=== PATIENT | female | born 1950 | race Caucasian/White ===

== ENCOUNTER 2017-03-13 16:06 | Emergency (ER) | payer MEDICARE, OTHER ==
[2017-03-13] MEDS ORDERED: ALUMINUM & MAGNESIUM HYDROXIDE 30 ML UD PO ONE (16:51)
[2017-03-13] MEDS ORDERED: ONDANSETRON ODT 8 MG TAB SL ONE ×2 (16:51→20:45)
[2017-03-13] MEDS ORDERED: SODIUM CHLORIDE 0.9% 1000ML 1,000 ML IVS ONE ×2 (16:51→20:35)
--- NOTE | 2017-03-13 17:15 | RAD ---
EXAM DESCRIPTION: Abdomen Series CLINICAL HISTORY: 66 years Female ,nvd COMPARISON: None. TECHNIQUE: Frontal view chest x-ray and two views of the abdomen. FINDINGS: The cardiomediastinal silhouette appears unremarkable. No consolidating infiltrates or pleural effusions. No free air is identified beneath the hemidiaphragms. No dilated loops of bowel to suggest obstruction. Degenerative changes in the spine. Clips in the gallbladder fossa. IMPRESSION: No acute plain film abnormality is identified. Electronically signed by: Rosa Johansen 03/13/2017 5:13 PM CDT
[2017-03-13] MEDS ORDERED: ACETAMINOPHEN 325 MG TAB PO ONE (17:48)
[2017-03-13] MEDS ORDERED: CIPROFLOXACIN 500 MG TAB PO ONE (19:50)
[2017-03-13] MEDS ORDERED: PROMETHAZINE HCL 25 MG TAB PO ONE (19:50)
[2017-03-13] MEDS ORDERED: metroNIDAZOLE IV PREMIX 500MG 500 MG in PREMIX BAG 1 BAG IVPB ONE (19:50)
[2017-03-13] MEDS ORDERED: FAMOTIDINE 20 MG TAB PO ONE (19:51)
[2017-03-13] MEDS ORDERED: metroNIDAZOLE IV PREMIX 500MG 100 ML IVPB ONE (19:57)
--- NOTE | 2017-03-13 20:38 | ED.PDOC ---
History of Present Illness - General Chief Complaint: GI Problem Stated Complaint: chills, n/v/d Time Seen by Provider: 03/13/17 16:13 Source: patient Exam Limitations: no limitations - History of Present Illness Initial Comments: he patient is a 66-year-old female presenting to the emergency room secondary tonausea and vomiting and diarrhea. She's had diarrhea for the last day and nausea and vomiting starting this morning. Mild to moderate abdominal cramping. Minimal abdominal pain. She is febrile here currently. No blood in the stool or the vomitus. No history of pancreatitis. No rash. No sore throat. No shortness of breath or cough. No chest pain. Timing/Duration: 24 hours Severity: moderate Improving Factors: nothing Worsening Factors: nothing Associated Symptoms: fever/chills, loss of appetite, malaise, nausea/vomiting, weakness Allergies/Adverse Reactions: Allergies NO KNOWN ALLERGY Allergy (Verified 03/13/17 17:34) Home Medications: Ambulatory Orders Ciprofloxacin [Cipro] 500 mg PO BID #20 tab 03/13/17 Famotidine 20 mg PO DAILY #30 tab 03/13/17 Metronidazole 500 mg PO TID #30 tab 03/13/17 Ondansetron [Zofran Odt] 4 mg PO Q4H PRN #10 tab 03/13/17 Review of Systems - Review of Systems Constitutional: States: fever, malaise EENTM: States: no symptoms reported Respiratory: States: no symptoms reported Cardiology: States: no symptoms reported Gastrointestinal/Abdominal: States: diarrhea, nausea, vomiting Genitourinary: States: no symptoms reported Musculoskeletal: States: no symptoms reported Skin: States: no symptoms reported Neurological: States: no symptoms reported Endocrine: States: no symptoms reported All other Systems: No Change from Baseline Past Medical History (General) - Patient Medical History Hx Diabetes: No Surgical History: appendectomy, cholecystectomy, Hysterectomy Family Medical History - Family History Mother Family History: Unknown Physical Exam - Physical Exam General Appearance: Alert, Comfortable, No apparent distress Eye Exam: bilateral normal Ears, Nose, Throat: hearing grossly normal, normal ENT inspection, normal pharynx Neck: non-tender, full range of motion, supple Respiratory: chest non-tender - with the exception of the dermatology treated sites, lungs clear, normal breath sounds, no respiratory distress, no accessory muscle use Cardiovascular/Chest: normal peripheral pulses, no edema, tachycardia - regular rhythm Peripheral Pulses: radial,right: 2+, radial,left: 2+, dorsalis pedis,right: 2+, dorsalis pedis,left: 2+ Gastrointestinal/Abdominal: soft, other - no rebound or peritoneal signs. She does have someincreased discomfort palpation over the left lateral abdomen. Rectal Exam: deferred Back Exam: normal inspection, no CVA tenderness, no vertebral tenderness Extremity: normal range of motion, non-tender, normal inspection, no pedal edema , no calf tenderness, normal capillary refill Neurologic: security assessor II-XII nml as tested, alert, normal mood/affect, oriented x 3 Skin Exam: normal color Comments: Vital Signs - 24 hr 03/13/17 03/13/17 03/13/17 16:15 18:43 19:35 Temperature 101.2 F H 101.4 F H Pulse Rate [ 104 H 102 H 105 H right brachial] Respiratory 20 16 18 Rate Blood Pressure 142/93 165/89 135/71 [right brachial ] O2 Sat by Pulse 104 H 95 94 L Oximetry 03/13/17 20:00 Temperature Pulse Rate [ 95 H right brachial] Respiratory 18 Rate Blood Pressure 126/62 [right brachial ] O2 Sat by Pulse 95 Oximetry Progress - Progress Progress: 03/13/17 20:40 the patient is a 66-year-old female presenting to the emergency room secondary to nausea and vomiting and diarrheaover the course of the day. She has received 2 L of IV fluids for the dehydration. She has received antibiotics. Lab work looks fairly reassuring. Diagnosis at this point is gastroenteritis colitis. Early diverticulitis is a possibility. The patient is going to be covered with ciprofloxacin and metronidazole. She has received her first doses of these at this time. She is also going to be placed on Pepcid twice daily and she will be written for a prescription for Zofran for as needed use to help control nausea and vomiting. Maalox can additionally be used for gastritis symptoms. She needs to keep herself well hydrated and avoid spicy foods or large meals. ER warnings are given for any significant worsening. - Results/Orders Results/Orders: Laboratory Tests 03/13/17 03/13/17 03/13/17 17:00 17:00 18:48 WBC 11.5 H RBC 4.64 Hgb 12.9 Hct 39.1 MCV 84.1 MCH 27.8 MCHC 33.0 RDW 13.2 Plt Count 297 MPV 7.4 Absolute Neuts (auto) 9.40 H Absolute Lymphs (auto) 1.30 Absolute Monos (auto) 0.70 Absolute Eos (auto) 0.00 Absolute Basos (auto) 0.10 Neutrophils % 82.2 H Lymphocytes % 11.2 L Monocytes % 6.0 Eosinophils % 0.1 L Basophils % 0.5 Sodium 139 Potassium 3.3 L Chloride 106 Carbon Dioxide 22 Anion Gap 14.3 BUN 11 Creatinine 0.57 L BUN/Creatinine Ratio 19.3 Random Glucose 125 H Serum Osmolality 278.4 Calcium 9.0 Magnesium 1.9 Total Bilirubin 0.4 AST 13 ALT 14 Alkaline Phosphatase 64 Creatine Kinase 45 CK-MB (CK-2) 0.5 CK-MB (CK-2) % Not Reportable Troponin I < 0.02 Serum Total Protein 7.0 Albumin 3.9 Globulin 3.1 Albumin/Globulin Ratio 1.3 Amylase 54 Lipase 39 Urine Color Yellow Urine Appearance Clear Urine pH 7.0 Ur Specific [place] 1.015 Urine Protein Negative Urine Glucose (UA) Negative Urine Ketones Trace Urine Blood Small H Urine Nitrite Positive H Urine Bilirubin Negative Urine Urobilinogen 0.2 Ur Leukocyte Esterase Small H Urine RBC 1-3 Urine WBC 10-20 H Ur Epithelial Cells 0 Urine Bacteria 3+ H abdominal x-ray shows no acute pathology. Departure - Departure Clinical Impression: Gastroenteritis Disposition: Discharge to Home or Self Care Condition: Fair Departure Forms: ED Discharge - Pt. Copy, Patient Portal Self Enrollment Instructions: DI for Bacterial Gastroenteritis -- Adult Diet: bland diet Activity: increase activity as tolerated Prescriptions: Ciprofloxacin [Cipro] 500 mg PO BID #20 tab Famotidine 20 mg PO DAILY #30 tab Metronidazole 500 mg PO TID #30 tab Ondansetron [Zofran Odt] 4 mg PO Q4H PRN #10 tab PRN Reason: Vomiting Home Medications: Ambulatory Orders Ciprofloxacin [Cipro] 500 mg PO BID #20 tab 03/13/17 Famotidine 20 mg PO DAILY #30 tab 03/13/17 Metronidazole 500 mg PO TID #30 tab 03/13/17 Ondansetron [Zofran Odt] 4 mg PO Q4H PRN #10 tab 03/13/17 Additional Instructions: the patient is a 66-year-old female presenting to the emergency room secondary to nausea and vomiting and diarrheaover the course of the day. She has received 2 L of IV fluids for the dehydration. She has received antibiotics. Lab work looks fairly reassuring. Diagnosis at this point is gastroenteritis colitis. Early diverticulitis is a possibility. The patient is going to be covered with ciprofloxacin and metronidazole. She has received her first doses of these at this time. She is also going to be placed on Pepcid twice daily and she will be written for a prescription for Zofran for as needed use to help control nausea and vomiting. Maalox can additionally be used for gastritis symptoms. She needs to keep herself well hydrated and avoid spicy foods or large meals. ER warnings are given for any significant worsening.
[2017-03-13 22:03] VITALS: O2SAT 96
[2017-03-13 22:13] VITALS: BP 143/87; TEMP 98.7
== END 2017-03-13 22:12 | disposition home or self-care (01) ==
LOC: ER 16:06
DX: K52.9 Noninfective gastroenteritis and colitis, unspecified (principal)
CPT/HCPCS: 36415; 74020; 80053; 81001; 82150; 82550; 82553; 83690; 83735; 84484; 85025; 87086; 87088; 87186; J3490; J7030; Q0169

== ENCOUNTER → 2017-04-06 | Outpatient (CLI) | payer MEDICARE, OTHER ==
--- NOTE | 2017-04-06 14:45 | CT ---
EXAM DESCRIPTION: CT ABDOMEN AND PELVIS WITHOUT AND WITH CONTRAST CLINICAL HISTORY: LEFT LOWER QUADRANT PAIN, ABD PAIN COMPARISON: None Available. TECHNIQUE: CT of the abdomen and pelvis are performed prior to and during IV bolus administration of 100 mL of Isovue 300. Oral contrast media is administered as well. FINDINGS: The lung bases are clear of infiltrate. Liver is normal in size and parenchymal appearance. Spleen pancreas unremarkable. Mild left hydronephrosis and left hydroureter secondary to 3.2 mm stone impacted just above the left UVJ. Right kidney and ureter are unremarkable. There is no lymphadenopathy, inflammation, or free fluid observed. IMPRESSION: Left ureterolithiasis This exam was performed according to our departmental dose-optimization program, which includes automated exposure control, adjustment of the mA and/or kV according to patient size and/or use of iterative reconstruction technique. Electronically signed by: Brian Carlos MD 04/06/2017 2:42 PM CDT Workstation: [id number]
== END | disposition home or self-care (01) ==
LOC: CT 12:44
PROVIDERS: ATTEND Family Medicine
DX: N39.0 Urinary tract infection, site not specified (principal); R10.32 Left lower quadrant pain

== ENCOUNTER → 2018-12-08 | Outpatient (CLI) | payer MEDICARE, OTHER ==
--- NOTE | 2018-12-09 08:14 | US ---
US THYROID CLINICAL STATEMENT: THYROID NODULE. COMPARISON: None TECHNIQUE: Transcutaneous scanning, grayscale and Doppler modes. FINDINGS: Size right thyroid lobe: 4.5 x 1.5 x 1.4 cm Size left thyroid lobe: 5.6 x 1.4 x 1.0 cm Size isthmus: 0.38 cm Estimated total number of nodules greater than or equal to 1 cm: 1 Nodule 1: Size: 3.5 x 3.4 x 1.9 cm Location: Left Lower Composition: solid or almost completely solid: 2 points. Small cystlike areas. Echogenicity: hypoechoic: 2 points Shape: wider than tall: 0 points Margins: smooth: 0 points. Margins are hypoechoic. Echogenic foci: none: 0 points ACR Total Points: 4; ACR TI-RADS risk category: TR4 - moderately suspicious nodule. Nodule 2: Size: 0.9 x 0.8 x 0.8 cm Location: Right Upper Composition: solid or almost completely solid: 2 points Echogenicity: hypoechoic: 2 points Shape: wider than tall: 0 points Margins: smooth: 0 points Echogenic foci: peripheral calcifications: 2 points ACR Total Points: 6; ACR TI-RADS risk category: TR4 - moderately suspicious nodule. Nodule 3: Size: 0.7 x 0.6 x 0.5 cm Location: Right Upper Composition: solid or almost completely solid: 2 points Echogenicity: hypoechoic: 2 points Shape: wider than tall: 0 points Margins: smooth: 0 points Echogenic foci: none: 0 points ACR Total Points: 4; ACR TI-RADS risk category: TR4 - moderately suspicious nodule. Nodule 4: Size: 0.7 x 0.7 x 0.5 cm Location: Right Lower Composition: solid or almost completely solid: 2 points Echogenicity: hypoechoic: 2 points Shape: wider than tall: 0 points Margins: smooth: 0 points Echogenic foci: none: 0 points ACR Total Points: 4; ACR TI-RADS risk category: TR4 - moderately suspicious nodule. The soft tissue around the gland shows no evidence of distinct cyst or dominant solid mass. No parenchymal edema or large calcifications. Overlying skin changes. Normal vascularity. IMPRESSION: 1. Nodule 1: ACR TI-RADS 2017 Category TR4. Recommend: Ultrasound-guided fine needle aspiration. Recommendations based upon [facility] Best Practice recommendations and ACR TI-RADS 2017 guidelines. Please see below*. 2. Nodule 2: ACR TI-RADS 2017 Category TR4. Recommend: Follow-up ultrasound in 1 year. 3. Nodule 3: ACR TI-RADS 2017 Category TR4. Recommend: No further follow-up. 4. Nodule 4: ACR TI-RADS 2017 Category TR4. Recommend: No further follow-up. The soft tissue around the thyroid gland is unremarkable. *ACR TI-RADS 2017 Recommendations: TR1: No FNA or follow up TR2: No FNA or follow up TR3: FNA if >/= 2.5 cm, follow up if 1.5 - 2.4 cm in 1, 3, and 5 years TR4: FNA if >/= 1.5 cm, follow up if 1.0 - 1.4 cm in 1, 2, 3, and 5 years TR5: FNA if >/= 1.0 cm, follow up if 0.5 - 0.9 cm every year for 5 years ACR TI-RADS recommends that no more than two nodules with the highest ACR TI-RADS total point should be biopsied and no more than four nodules should be followed. These recommendations do not apply to patients with increased risk for thyroid cancer or patients with symptomatic thyroid disease. Electronically signed by: Efren Webb MD 12/09/2018 8:11 AM CDT
== END ==
LOC: US 08:18
PROVIDERS: ATTEND Family Medicine
DX: E04.1 Nontoxic single thyroid nodule (principal)

== ENCOUNTER → 2019-06-05 | Outpatient (CLI) | payer MEDICARE, OTHER | LOC: GMAE 17:09 | PROVIDERS: ATTEND Family Medicine | DX: E04.1 Nontoxic single thyroid nodule (principal) ==

== ENCOUNTER 2019-09-16 22:02 | Emergency (ER) | payer MEDICARE, OTHER ==
[2019-09-16 22:22] VITALS: TEMP 99.6
[2019-09-16] MEDS ORDERED: PROMETHAZINE HCL INJ 12.5 MG in SODIUM CHLORIDE 0.9% 50ML 50 ML IVPB ONE (22:26)
[2019-09-16] MEDS ORDERED: MORPHINE SULFATE INJ 10 MG/ML VIAL IV ONE (22:26)
[2019-09-16] MEDS ORDERED: SODIUM CHLORIDE 0.9% 1000ML 1,000 ML IVS ONE (22:26)
--- NOTE | 2019-09-16 22:26 | ED.PDOC ---
History of Present Illness - General Chief Complaint: GI Problem Stated Complaint: N/V today Time Seen by Provider: 09/16/19 22:13 Information Source: patient, RN notes reviewed, Vital Signs reviewed Exam Limitations: no limitations Additional Information: this is a 69-year-old female who presents today with complaints of nausea and vomiting throughout the day today. She states that 2 days ago she received treatment for UTI. She has taken 3 rounds of Zofran today without much improvement. She states that she has not had real episodes of emesis more dry heaving. Shemild epigastriscomfort as well. She states that her last bowel movement was yesterday and within normal limits. She has tried to eat small bites of crackers and eggs today and has been able to hold down fluids. She r emains very uncomfortable Her previous abdominal surgeries have been a hysterectomy, 2 sections, cholecystectomy, and appendectomy. She denies any fever or chills. She states that it is not been uncomfortable with urination today. Review of Systems - Review of Systems Constitutional: States: no symptoms reported. Denies: chills, fever EENTM: States: no symptoms reported Respiratory: States: no symptoms reported Cardiology: States: no symptoms reported Gastrointestinal/Abdominal: States: abdominal pain, nausea, vomiting. Denies: constipation, diarrhea Genitourinary: States: dysuria, frequency Musculoskeletal: States: no symptoms reported, other - right knee replacement August 14 Skin: States: no symptoms reported Neurological: States: no symptoms reported Endocrine: States: no symptoms reported Hematologic/Lymphatic: States: no symptoms reported All other Systems: Reviewed and Negative Past Medical History (General) - Patient Medical History Hx Diabetes: No Family Medical History - Family History Mother Family History: Unknown Physical Exam - Physical Exam General Appearance: Alert, Anxious, Obvious distress, Other - secondary to nausea Eyes, Ears, Nose, Throat Exam: PERRL/EOMI, normal ENT inspection, TMs normal, pharynx normal Neck: non-tender, full range of motion, supple, normal inspection Respiratory: chest non-tender, lungs clear, normal breath sounds, no respiratory distress, no accessory muscle use Cardiovascular/Chest: normal peripheral pulses, regular rate, rhythm, no edema, no gallop, no JVD, no murmur Peripheral Pulses: No deficit Gastrointestinal/Abdominal: normal bowel sounds, no organomegaly, no pulsatile mass, tenderness, other - mild discomfort in the epigastric region Rectal Exam: deferred Back Exam: normal inspection, no CVA tenderness, no vertebral tenderness Extremity: normal range of motion, non-tender, normal inspection, no pedal edema, no calf tenderness Neurologic: color control supervisor II-XII nml as tested, no motor/sensory deficits, alert, normal mood/affect, oriented x 3 Skin Exam: normal color, warm/dry Lymphatic: no adenopathy Progress - Progress Progress: 09/16/19 22:31 MDM: Acute gastritis, PUD, viral syndrome, influenza, dehydration, nausea vomiting, UTI. Patient will be evaluated with laboratory studies. We will go ahead and start an IV and hydrate her. We'll give antiemetics as well as Ppi and pain meds. 09/16/19 23:39 the patient is feeling much better. I explained her results to her and her . All questions were answered. 09/17/19 00:02 Pt is ready for discharge. - Results/Orders Results/Orders: Laboratory Tests 09/16/19 09/16/19 09/16/19 22:35 23:00 23:00 WBC 6.2 RBC 4.00 L Hgb 11.3 L Hct 34.1 L MCV 85.5 MCH 28.4 MCHC 33.2 RDW 13.8 Plt Count 313 MPV 7.3 L Absolute Neuts (auto) 5.10 Absolute Lymphs (auto) 0.60 L Absolute Monos (auto) 0.30 Absolute Eos (auto) 0.10 Absolute Basos (auto) 0.00 Neutrophils % 83.5 H Lymphocytes % 9.0 L Monocytes % 5.6 Eosinophils % 1.4 Basophils % 0.5 Sodium 137 Potassium 3.2 L Chloride 105 Carbon Dioxide 22 Anion Gap 13.2 BUN 10 Creatinine 0.77 BUN/Creatinine Ratio 13.0 Random Glucose 106 H Serum Osmolality 273.3 L Lactic Acid Calcium 8.9 Total Bilirubin 0.6 AST 41 ALT 25 Alkaline Phosphatase 83 Serum Total Protein 7.0 Albumin 3.7 Globulin 3.3 Albumin/Globulin Ratio 1.1 Urine Color Dk yellow H Urine Appearance Clear Urine pH 6.5 Ur Specific [place] 1.015 Urine Protein Negative Urine Glucose (UA) Negative Urine Ketones >=160 Urine Blood Small H Urine Nitrite Positive H Urine Bilirubin Small H Urine Urobilinogen 0.2 Ur Leukocyte Esterase Negative Urine RBC 1-3 Urine WBC 1-3 Ur Epithelial Cells 0-1 Urine Bacteria Rare 09/16/19 23:00 WBC RBC Hgb Hct MCV MCH MCHC RDW Plt Count MPV Absolute Neuts (auto) Absolute Lymphs (auto) Absolute Monos (auto) Absolute Eos (auto) Absolute Basos (auto) Neutrophils % Lymphocytes % Monocytes % Eosinophils % Basophils % Sodium Potassium Chloride Carbon Dioxide Anion Gap BUN Creatinine BUN/Creatinine Ratio Random Glucose Serum Osmolality Lactic Acid 1.0 Calcium Total Bilirubin AST ALT Alkaline Phosphatase Serum Total Protein Albumin Globulin Albumin/Globulin Ratio Urine Color Urine Appearance Urine pH Ur Specific [place] Urine Protein Urine Glucose (UA) Urine Ketones Urine Blood Urine Nitrite Urine Bilirubin Urine Urobilinogen Ur Leukocyte Esterase Urine RBC Urine WBC Ur Epithelial Cells Urine Bacteria COMPARISON: CT of the abdomen and pelvis April 07, 2017. FINDINGS: LUNG BASES: Unremarkable. No mass. No consolidation. ABDOMEN: LIVER: A 1.7 cm cyst within the right hepatic lobe is present. GALLBLADDER AND BILE DUCTS: Surgical clips are present in the right upper quadrant, consistent with previous cholecystectomy. PANCREAS: Unremarkable. No ductal dilation. SPLEEN: Unremarkable. ADRENALS: Unremarkable. No mass. KIDNEYS AND URETERS: Several bilateral parapelvic renal cysts are noted, the largest on the left measures 1.8 cm. There is no obstructing renal or ureteral calculus. There is no hydronephrosis or hydroureter of either kidney. STOMACH AND BOWEL: The stomach is minimally distended with food contents. The small bowel is normal in caliber. Stool is present throughout colon. Scattered colonic diverticula are noted without surrounding inflammation. There is no bowel obstruction. PELVIS: APPENDIX: No findings to suggest acute appendicitis. BLADDER: The bladder is nearly empty. No stones. REPRODUCTIVE: The patient is status post hysterectomy. ABDOMEN and PELVIS: INTRAPERITONEAL SPACE: Unremarkable. No free air. No significant fluid collection. BONES/JOINTS: Postsurgical change of the lumbar spine with spinal rods from L3 through S1. SOFT TISSUES: The soft tissues are normal. VASCULATURE: Several calcified phleboliths are present within the pelvis. No abdominal aortic aneurysm. LYMPH NODES: Unremarkable. No enlarged lymph nodes. IMPRESSION: IMPRESSION: No acute findings on this noncontrasted CT of the abdomen and pelvis to explain the patient's symptoms. Chronic findings as above. Electronically signed by: Johanna Coppola MD 09/16/2019 11:15 PM SLUDGE CONTROL OPERATOR Flu a and b are both negative. - EKG/XRAY/CT EKG: Sinus, no ST T wave changes Comments: Rate of 71, normal axis, no ischemic changes. Departure - Departure Clinical Impression: Acute gastritis without bleeding Qualifiers: Gastritis type: unspecified gastritis Qualified Code(s): K29.00 - Acute gastritis without bleeding Nausea & vomiting Qualifiers: Vomiting type: unspecified Vomiting Intractability: non-intractable Qualified Code(s): R11.2 - Nausea with vomiting, unspecified Time of Disposition: 00:02 Disposition: Discharge to Home or Self Care Condition: Good Departure Forms: ED Discharge - Pt. Copy, Patient Portal Self Enrollment Instructions: Gastritis Referrals: LUIS E ROUSE MD [Primary Care Provider] - 1-2 Weeks Prescriptions: Promethazine HCl [Promethazine Hydrochlorid] 25 mg PO Q6HRS #12 tab Pantoprazole Tablet [Protonix] 40 mg PO ACBK #14 tab Home Medications: Ambulatory Orders Ciprofloxacin [Cipro] 500 mg PO BID #20 tab 03/13/17 Famotidine 20 mg PO DAILY #30 tab 03/13/17 Metronidazole 500 mg PO TID #30 tab 03/13/17 Ondansetron [Zofran Odt] 4 mg PO Q4H PRN #10 tab 03/13/17 Pantoprazole Tablet [Protonix] 40 mg PO ACBK #14 tab 09/16/19 Promethazine HCl [Promethazine Hydrochlorid] 25 mg PO Q6HRS #12 tab 09/16/19 Additional Instructions: take medications as prescribed. [place] diet is recommended. Encourage hydration. If any worsening of symptoms return to the emergency room for reevaluation or follow up with PCP.
[2019-09-16] MEDS ORDERED: PANTOPRAZOLE SODIUM IV 40 MG VIAL IV ONE (22:28)
[2019-09-16] MEDS ORDERED: PROMETHAZINE HCL INJ 25 MG/ML VIAL ONE (22:37)
[2019-09-16] MEDS ORDERED: SODIUM CHLORIDE 0.9% 50ML 50 ML ONE (22:38)
--- NOTE | 2019-09-16 23:16 | CT ---
EXAM: CT Abdomen and Pelvis Without Intravenous Contrast CLINICAL HISTORY: The patient is 69 years old and is Female; abdominal pain TECHNIQUE: Axial computed tomography images of the abdomen and pelvis without intravenous contrast. Sagittal and coronal reformatted images were created and reviewed. This CT exam was performed using one or more of the following dose reduction techniques: automated exposure control, adjustment of the mA and/or kV according to patient size, and/or use of iterative reconstruction technique. COMPARISON: CT of the abdomen and pelvis April 07, 2017. FINDINGS: LUNG BASES: Unremarkable. No mass. No consolidation. ABDOMEN: LIVER: A 1.7 cm cyst within the right hepatic lobe is present. GALLBLADDER AND BILE DUCTS: Surgical clips are present in the right upper quadrant, consistent with previous cholecystectomy. PANCREAS: Unremarkable. No ductal dilation. SPLEEN: Unremarkable. ADRENALS: Unremarkable. No mass. KIDNEYS AND URETERS: Several bilateral parapelvic renal cysts are noted, the largest on the left measures 1.8 cm. There is no obstructing renal or ureteral calculus. There is no hydronephrosis or hydroureter of either kidney. STOMACH AND BOWEL: The stomach is minimally distended with food contents. The small bowel is normal in caliber. Stool is present throughout colon. Scattered colonic diverticula are noted without surrounding inflammation. There is no bowel obstruction. PELVIS: APPENDIX: No findings to suggest acute appendicitis. BLADDER: The bladder is nearly empty. No stones. REPRODUCTIVE: The patient is status post hysterectomy. ABDOMEN and PELVIS: INTRAPERITONEAL SPACE: Unremarkable. No free air. No significant fluid collection. BONES/JOINTS: Postsurgical change of the lumbar spine with spinal rods from L3 through S1. SOFT TISSUES: The soft tissues are normal. VASCULATURE: Several calcified phleboliths are present within the pelvis. No abdominal aortic aneurysm. LYMPH NODES: Unremarkable. No enlarged lymph nodes. IMPRESSION: No acute findings on this noncontrasted CT of the abdomen and pelvis to explain the patient's symptoms. Chronic findings as above. Electronically signed by: Johanna Coppola MD 09/16/2019 11:15 PM LINING CEMENTER
[2019-09-17 00:03] VITALS: BP 168/84; O2SAT 95
== END 2019-09-17 00:09 | disposition home or self-care (01) ==
LOC: ER 22:02
DX: K29.00 Acute gastritis without bleeding (principal); Z90.49 Acquired absence of other specified parts of digestive tract
CPT/HCPCS: 74176; 80053; 81001; 83605; 85025; 87086; 87502; 93005; A4216; J2270; J2550; J7030

== ENCOUNTER → 2019-09-28 | Outpatient (CLI) | payer MEDICARE, OTHER | LOC: GMAE 15:19 | PROVIDERS: ATTEND Family Medicine | DX: E03.9 Hypothyroidism, unspecified (principal); N39.0 Urinary tract infection, site not specified ==

== ENCOUNTER 2019-10-05 05:37 | Day surgery (SDC) | payer MEDICARE, OTHER ==
[2019-10-05] MEDS ORDERED: LACTATED RINGERS 1,000 ML ONE (06:53)
[2019-10-05] MEDS ORDERED: METOPROLOL TARTRATE INJ 5 MG/5 ML VIAL IV ONE (07:00)
[2019-10-05] MEDS ORDERED: LIDOCAINE 1% 10 ML VIAL INJ ONE (07:00)
[2019-10-05] MEDS ORDERED: DEXAMETHASONE INJ 10 MG/ML VIAL ONE (07:00)
[2019-10-05] MEDS ORDERED: PROPOFOL 200 MG/20 ML VIAL IV ONE (07:00)
[2019-10-05] MEDS ORDERED: raNITIdine HCL INJ 25 MG/ML VIAL ONE (07:00)
[2019-10-05] MEDS ORDERED: MIDAZOLAM INJ 2 MG/2 ML VIAL ONE (07:48)
[2019-10-05] MEDS ORDERED: KETOROLAC TROMETHAMINE INJ 30 MG/ML VIAL ONE (08:58)
--- NOTE | 2019-10-05 09:20 | OP ---
DATE OF PROCEDURE: 10/05/19 PREOPERATIVE DIAGNOSIS: 1. Screening colonoscopy. POSTOPERATIVE DIAGNOSIS: 1. Screening colonoscopy. PROCEDURE: 1. Colonoscopy with biopsy times 2. SURGEON: Adithya Daniels MD ANESTHESIA: General. FINDINGS: There was a good prep. Polyps were seen, approximately 2.5 mm polyp in the mid ascending colon and another 2 mm polyp excised in the distal cecum. No other polyps seen. No significant diverticulosis. Internal small hemorrhoids were also seen. COMPLICATIONS: None. ESTIMATED BLOOD LOSS: Minimal. PLAN: Discharge. INDICATION: As stated. PROCEDURE: General anesthesia was induced in the lateral position. Digital rectal exam was normal. The colonoscope was introduced and passed to the cecum. Before we got to the cecum, we excised a 2.5 mm polyp which did appear adenomatous in the mid ascending colon. This was completely excised. There was some oozing from the base. As we came out later, it had clotted and there was no continued bleeding. Once we reached the cecum, upon withdrawal, there was a little rub of the mucosa from the scope and manipulation there, but no bleeding at this point, no evidence of perforation and then the small 2 mm polyp was identified and completely excised with forceps. No bleeding. On further withdrawal, no other polyps were identified. Air was aspirated. The patient tolerated the procedure and was taken to Recovery to be discharged. #[id number] cc: MD ALAN Dillard
[2019-10-12 02:55] VITALS: BP 177/97; TEMP 97.7; O2SAT 96
== END 2019-10-05 10:01 | disposition home or self-care (01) ==
LOC: AMB 05:37
PROVIDERS: ATTEND Surgery
DX: Z12.11 Encounter for screening for malignant neoplasm of colon (principal); D12.2 Benign neoplasm of ascending colon; D12.0 Benign neoplasm of cecum; K64.8 Other hemorrhoids; I10 Essential (primary) hypertension; E89.0 Postprocedural hypothyroidism; Z90.49 Acquired absence of other specified parts of digestive tract; Z90.710 Acquired absence of both cervix and uterus; Z79.899 Other long term (current) drug therapy
CPT/HCPCS: 00812; 45380; 88305; J1100; J1885; J2250; J2780; J3490; J7120

== ENCOUNTER → 2019-12-12 | Outpatient (CLI) | payer MEDICARE, OTHER | LOC: GMAE 11:32 | PROVIDERS: ATTEND Family Medicine | DX: E03.9 Hypothyroidism, unspecified (principal) ==

== ENCOUNTER 2020-09-29 22:10 | Emergency (ER) | payer MEDICARE, OTHER ==
[2020-09-29] MEDS ORDERED: MORPHINE SULFATE INJ 10 MG/ML VIAL IV ONE (22:28)
[2020-09-29] MEDS ORDERED: ALUM & MAG HYDROX-SIMETHICONE 30 ML, LIDOCAINE VISCOUS 2% 15 ML PO ONE ×2 (22:28)
[2020-09-29] MEDS ORDERED: LIDOCAINE HCL 2% (MOUTH-THROAT) 15 ML UD ONE (22:29)
[2020-09-29] MEDS ORDERED: ALUM & MAG HYDROX-SIMETHICONE 30 ML UD ONE (22:29)
[2020-09-29] MEDS ORDERED: ONDANSETRON ODT 8 MG TAB SL ONE (22:38)
[2020-09-29] MEDS ORDERED: PANTOPRAZOLE SODIUM IV 40 MG VIAL IV ONE (23:04)
--- NOTE | 2020-09-29 23:05 | RAD ---
EXAM: Abdominal Radiography COMPARISON: CT abdomen pelvis September 16, 2019 INDICATION: acute chest adn epigastric pain FINDINGS: AP views of the chest and abdomen demonstrate a normal cardiac silhouette with clear lung bases. There is a nonobstructive bowel gas pattern. There is a moderate stool burden. No gross intraperitoneal free air. No abnormal calcifications. Surgical clips project over the right upper quadrant. There are surgical changes of the lumbar spine. IMPRESSION: Nonobstructive bowel gas pattern. Electronically signed by: Vasu Perry MD 09/29/2020 11:04 PM [employer]
--- NOTE | 2020-09-30 00:14 | CT ---
EXAM: CTA Chest, Abdomen, and Pelvis COMPARISON: CT abdomen and pelvis September 16, 2019 INDICATION: MAIN chest pain, ddimer, eval aorta TECHNIQUE: CTA of the chest, abdomen and pelvis was acquired with IV contrast material. Coronal and sagittal reconstructions were obtained. Automated exposure control was utilized on this examination as a dose lowering technique. CTA FINDINGS: Moderate multivessel calcified atherosclerosis. No dissection or aneurysm. No occlusion. 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 Patent superior mesenteric artery, inferior mesenteric artery, and renal arteries. NONVASCULAR CHEST FINDINGS: Heart and mediastinum: Heart size is normal. No lymphadenopathy. Thyroid gland: Out of the [id number]. Lungs: A few faint groundglass opacities are noted in the left lung. Airways: No filling defects. No bronchiectasis. Pleura: No pneumothorax. No significant pleural effusion. Musculoskeletal and soft tissues: Within normal limits for age. CHEST IMPRESSION: 1. No acute vascular abnormalities of the chest. 2. A few faint groundglass opacities in the left lung are favored to represent early pneumonia. Liver: A 2.0 cm hypoenhancing region of the central liver is favored to represent focal fat deposition or a hemangioma. Otherwise normal liver. Gallbladder and biliary: Cholecystectomy. Unremarkable biliary tree. Pancreas: Normal. Spleen: Normal. Kidneys and adrenal glands: Normal adrenal glands. Small right renal cortical cyst and bilateral peripelvic cysts. Stomach and Small Bowel: Normal stomach. 1.6 cm periampullary duodenal diverticulum. The remainder of the small bowel is normal. Urinary bladder: Normal. Uterus and Adnexa: Atrophic or absent uterus. Colon and Appendix: A few colonic diverticula are noted. No evidence of appendicitis. Peritoneal cavity: No ascites or free air. Retroperitoneum and lymph nodes: Normal. Musculoskeletal and soft tissues: Soft tissues are unremarkable. No aggressive bone lesions. Lumbosacral fusion hardware is present with laminectomies. No compression fracture. ABDOMEN AND PELVIS IMPRESSION: 1. No acute intra-abdominal abnormality. 2. 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 Electronically signed by: Vasu Perry MD 09/30/2020 12:12 AM [facility]
--- NOTE | 2020-09-30 02:11 | ED.PDOC ---
History of Present Illness - General Chief Complaint: Chest Pain/AL Stated Complaint: mid chest pain onset 30 mins ago Time Seen by Provider: 09/29/20 22:11 Source: patient Exam Limitations: no limitations - History of Present Illness Initial Comments: The patient is a 70-year-old female presented emergency room secondary to substernal and epigastric pain starting about 30 minutes prior to arrival. It is squeezing and burning in nature. She has had this pain before but this is more severe than normal. Normally she is able to take some Pepto-Bismol and help it go away. She also reports normally drinking water helps it go away. No nausea or vomiting. She does take Prilosec already. No GI bleed. No fever. No history of any cardiac issues or aortic pathology. No history of any pulmonary emboli. No leg swelling. No syncope or near syncope. On exam the patient does have very significant epigastric tenderness to palpation. No palpable mass. Timing/Duration: 1/2 hour Severity: severe Improving Factors: medication Worsening Factors: nothing Associated Symptoms: chest pain, loss of appetite Allergies/Adverse Reactions: Allergies NO KNOWN ALLERGY Allergy (Verified 09/29/20 22:20) Home Medications: Ambulatory Orders Levothyroxine Sodium [Synthroid] 137 mcg PO DAILY 09/28/19 Meloxicam [Mobic] 15 mg PO DAILY 09/28/19 Omeprazole [Prilosec Cap] 20 mg PO ACBK 09/28/19 Tramadol HCl 50 mg PO PRN PRN 09/28/19 Zolpidem Tartrate [Ambien] 5 mg PO BEDTIME 09/28/19 Amoxicillin & Pot Clavulanate [Augmentin Tab] 875 mg PO BID #10 tab 09/30/20 Ondansetron Odt [Zofran ODT] 4 mg PO Q8HR PRN #5 tab 09/30/20 Sucralfate Tab [Carafate Tab] 1 gm PO QID #120 tab 09/30/20 Review of Systems - Review of Systems Constitutional: States: diaphoresis EENTM: States: no symptoms reported Respiratory: States: no symptoms reported Cardiology: States: chest pain Gastrointestinal/Abdominal: States: abdominal pain, nausea Genitourinary: States: no symptoms reported Musculoskeletal: States: no symptoms reported Skin: States: no symptoms reported Neurological: States: no symptoms reported Endocrine: States: no symptoms reported All other Systems: No Change from Baseline Past Medical History (General) - Patient Medical History Hx Seizures: No Hx Stroke: No Hx Dementia: No Hx Asthma: No Hx of COPD: No Hx Cardiac Disorders: No Hx Congestive Heart Failure: No Hx Pacemaker: No Hx Hypertension: Yes Hx Thyroid Disease: Yes Hx Diabetes: No Hx Gastroesophageal Reflux: No Hx Renal Disease: No Hx Cancer: No Hx of HIV: No Hx Hepatitis C: No Hx MRSA: No Surgical History: appendectomy, cholecystectomy, tonsillectomy, Hysterectomy - Vaccination History Hx Tetanus, Diphtheria Vaccination: No Hx Influenza Vaccination: Yes Hx Pneumococcal Vaccination: Yes - Social History Hx Alcohol Use: Yes - social Family Medical History - Family History Mother Family History: Unknown Physical Exam - Physical Exam General Appearance: Alert, No apparent distress, Obvious distress Eye Exam: bilateral normal Ears, Nose, Throat: hearing grossly normal, normal ENT inspection Neck: full range of motion, supple Respiratory: lungs clear, normal breath sounds, no respiratory distress, no accessory muscle use Cardiovascular/Chest: normal peripheral pulses, regular rate, rhythm, no edema Peripheral Pulses: radial,right: 2+, radial,left: 2+ Gastrointestinal/Abdominal: soft, other - Epigastric discomfort to palpation. No palpable mass. No bruising. No evidence of trauma. Rectal Exam: deferred Back Exam: no CVA tenderness, no vertebral tenderness Extremity: non-tender, normal inspection, no pedal edema, normal capillary refill Neurologic: bag sorter II-XII nml as tested, alert, oriented x 3, other - She is anxious Comments: Vital Signs - 8 hr 09/29/20 09/29/20 09/30/20 22:10 23:10 00:10 Temperature 98.7 F Pulse Rate [ 108 H 83 81 monitor] Respiratory 20 16 16 Rate Blood Pressure 187/122 151/88 157/85 [Left Arm] O2 Sat by Pulse 97 92 L 93 L Oximetry 09/30/20 09/30/20 01:10 02:00 Temperature Pulse Rate [ 87 88 monitor] Respiratory 16 16 Rate Blood Pressure 144/97 138/79 [Left Arm] O2 Sat by Pulse 93 L 90 L Oximetry Progress - Progress Progress: 09/30/20 02:14 The patient is a 70-year-old female presented emergency room secondary to substernal epigastric pain. Work-up fails to show any significant cardiac or vascular pathology. This is most likely severe gastritis and esophagitis. The patient is going to increase her Prilosec to twice daily for the next month. She is additionally going to be placed on Carafate for the next 2 months. She does need to keep liquid Maalox or Mylanta with her to help reduce symptoms as needed. She needs to take dietary precautions to avoid upsetting her stomach. She needs to keep her self well-hydrated. Incidentally found is a small urinary tract infection. The dose of Rocephin desmond rodney will be written for Augmentin for 5 days as an outpatient. She will also be written for Zofran for as needed use. ER warnings are given. Follow-up with primary care doctor later next week. phil sasha [phone] - Results/Orders Results/Orders: EKG shows normal sinus rhythm at 92 bpm. Normal axis. Normal R wave progression. No ST segment or T wave changes indicative of acute ischemia. Normal QT interval. Acute abdominal series appears benign. See report for details. Rapid Covid test is negative. CT angiogram of the chest and CT of abdomen pelvis with IV contrast fails to show acute pathology with the exception of possible small infiltrate in the left lower lobe. Laboratory Results - last 24 hr 09/29/20 09/29/20 09/29/20 22:30 22:30 22:30 WBC 5.7 RBC 4.64 Hgb 12.9 Hct 39.0 MCV 84.1 MCH 27.8 MCHC 33.0 RDW 13.7 Plt Count 323 MPV 7.3 L Absolute Neuts (auto) 4.30 Absolute Lymphs (auto) 0.90 L Absolute Monos (auto) 0.40 Absolute Eos (auto) 0.10 Absolute Basos (auto) 0.00 Neutrophils % 74.7 Lymphocytes % 15.5 L Monocytes % 7.5 Eosinophils % 1.6 Basophils % 0.7 PT 9.3 INR < 1.00 PTT (SP) 22.8 D-Dimer, Quantitative 1640.0 H* Sodium 138 Potassium 3.9 Chloride 101 Carbon Dioxide 28 Anion Gap 12.9 BUN 25 H Creatinine 0.81 BUN/Creatinine Ratio 30.9 H Random Glucose 139 H Serum Osmolality 282.3 Calcium 9.1 Magnesium 2.0 Total Bilirubin 0.3 AST 15 ALT 14 Alkaline Phosphatase 71 Creatine Kinase 51 CK-MB (CK-2) 0.8 CK-MB (CK-2) % Not Reportable Troponin I < 0.02 B-Natriuretic Peptide 33.0 Serum Total Protein 7.5 Albumin 3.8 Globulin 3.7 H Albumin/Globulin Ratio 1.0 L Amylase 51 Lipase 47 TSH 0.68 Urine Color Urine Appearance Urine pH Ur Specific Fellows Urine Protein Urine Glucose (UA) Urine Ketones Urine Blood Urine Nitrite Urine Bilirubin Urine Urobilinogen Ur Leukocyte Esterase Urine RBC Urine WBC Ur Epithelial Cells Amorphous Sediment Urine Bacteria 09/29/20 09/30/20 23:45 01:40 WBC RBC Hgb Hct MCV MCH MCHC RDW Plt Count MPV Absolute Neuts (auto) Absolute Lymphs (auto) Absolute Monos (auto) Absolute Eos (auto) Absolute Basos (auto) Neutrophils % Lymphocytes % Monocytes % Eosinophils % Basophils % PT INR PTT (SP) D-Dimer, Quantitative Sodium Potassium Chloride Carbon Dioxide Anion Gap BUN Creatinine BUN/Creatinine Ratio Random Glucose Serum Osmolality Calcium Magnesium Total Bilirubin AST ALT Alkaline Phosphatase Creatine Kinase 46 CK-MB (CK-2) 0.7 CK-MB (CK-2) % Not Reportable Troponin I < 0.02 B-Natriuretic Peptide Serum Total Protein Albumin Globulin Albumin/Globulin Ratio Amylase Lipase TSH Urine Color Yellow Urine Appearance Sl cloudy Urine pH 8.5 H Ur Specific Fellows 1.020 Urine Protein Negative Urine Glucose (UA) Negative Urine Ketones Negative Urine Blood Small H Urine Nitrite Positive H Urine Bilirubin Negative Urine Urobilinogen 0.2 Ur Leukocyte Esterase Trace H Urine RBC 3-5 H Urine WBC 5-10 H Ur Epithelial Cells 1-3 Amorphous Sediment Trace Urine Bacteria 2+ H Departure - Departure Clinical Impression: UTI (urinary tract infection) Qualifiers: Urinary tract infection type: acute cystitis Hematuria presence: without hematuria Qualified Code(s): N30.00 - Acute cystitis without hematuria Acute gastritis Qualifiers: Gastritis type: unspecified gastritis Gastritis bleeding: without bleeding Qualified Code(s): K29.00 - Acute gastritis without bleeding Disposition: Discharge to Home or Self Care Condition: Fair Departure Forms: ED Discharge - Pt. Copy, Patient Portal Self Enrollment Instructions: DI for Chest Pain, Gastritis (DC), Urinary Tract Infection, Adult (DC) Diet: bland diet Activity: increase activity as tolerated Referrals: LUIS E ROUSE MD [Primary Care Provider] - 1-2 Weeks Prescriptions: Ondansetron Odt [Zofran ODT] 4 mg PO Q8HR PRN #5 tab PRN Reason: Nausea--Moderate Amoxicillin & Pot Clavulanate [Augmentin Tab] 875 mg PO BID #10 tab Sucralfate Tab [Carafate Tab] 1 gm PO QID #120 tab Home Medications: Ambulatory Orders Levothyroxine Sodium [Synthroid] 137 mcg PO DAILY 09/28/19 Meloxicam [Mobic] 15 mg PO DAILY 09/28/19 Omeprazole [Prilosec Cap] 20 mg PO ACBK 09/28/19 Tramadol HCl 50 mg PO PRN PRN 09/28/19 Zolpidem Tartrate [Ambien] 5 mg PO BEDTIME 09/28/19 Amoxicillin & Pot Clavulanate [Augmentin Tab] 875 mg PO BID #10 tab 09/30/20 Ondansetron Odt [Zofran ODT] 4 mg PO Q8HR PRN #5 tab 09/30/20 Sucralfate Tab [Carafate Tab] 1 gm PO QID #120 tab 09/30/20 Additional Instructions: The patient is a 70-year-old female presented emergency room secondary to substernal epigastric pain. Work-up fails to show any significant cardiac or vascular pathology. This is most likely severe gastritis and esophagitis. The patient is going to increase her Prilosec to twice daily for the next month. She is additionally going to be placed on Carafate for the next 2 months. She does need to keep liquid Maalox or Mylanta with her to help reduce symptoms as needed. She needs to take dietary precautions to avoid upsetting her stomach. The patient needs to avoid taking her Mobic for the next 2 weeks. She needs to keep her self well-hydrated. Incidentally found is a small urinary tract infection. The dose of Rocephin here ronel will be written for Augmentin for 5 days as an outpatient. She will also be written for Zofran for as needed use. ER warnings are given. Follow-up with primary care doctor later next week.
[2020-09-30] MEDS ORDERED: cefTRIAXone SODIUM 1 GM VIAL IM ONE (02:14)
[2020-09-30] MEDS ORDERED: LIDOCAINE 1% 2 ML VIAL INJ ONE (02:19)
[2020-09-30 02:26] VITALS: BP 136/78; TEMP 98.6; O2SAT 93
== END 2020-09-30 02:26 | disposition home or self-care (01) ==
LOC: ER 22:10
DX: K29.00 Acute gastritis without bleeding (principal); N30.00 Acute cystitis without hematuria; R07.2 Precordial pain; I10 Essential (primary) hypertension; E07.9 Disorder of thyroid, unspecified; Z20.822 Contact with and (suspected) exposure to COVID-19; Z90.49 Acquired absence of other specified parts of digestive tract; Z79.899 Other long term (current) drug therapy
CPT/HCPCS: 71275; 74019; 74177; 80053; 81001; 82150; 82550; 82553; 83690; 83735; 83880; 84443; 84484; 85025; 85379; 85610; 85730; 87086; 87635; 93005; J0696; J2270

== ENCOUNTER → 2020-10-09 | Outpatient (CLI) | payer MEDICARE, OTHER ==
--- NOTE | 2020-10-09 12:40 | US ---
EXAM DESCRIPTION: Abdomen,Complete: Ultrasound. CLINICAL HISTORY: 70 years Female EPIGASTRIC PAIN COMPARISON: None Available. TECHNIQUE: Transabdominal scanning: grayscale and Doppler modes. FINDINGS: Gallbladder: Surgically absent. No fluid in the gallbladder fossa. Abdominal wall Non-tender with transducer pressure. Common bile duct: caliber 7.2 mm upper normal limits, postcholecystectomy. Liver: normal echogenicity; focal echogenic object measuring 2.8 x 2.2 x 2.0 cm with central cyst or hypoechoic structure. Simple cyst in the right lobe measuring 1.7 x 1.6 x 1.5 cm. Contour liver capsule smooth where seen. No fluid around the liver. Intrahepatic biliary ducts normal caliber. Doppler hepatopedal flow and normal caliber portal vein 11.6 mm.. Long axis right lobe 14.5 cm. Pancreas: normal size and echogenicity. Duct not seen. Complete abdominal aorta: Normal caliber from the proximal segment to the distal bifurcation.. IVC: visualized and normal caliber. Right kidney: long axis measures 12 cm; volume 196.8 mL.. Cortical echogenicity is normal. 11.5 mm cortical thickness. No echogenic stone; hydronephrosis. Left kidney: Limited visualization. Long axis measures 11.1 cm; volume 186.6 mL. Cortical echogenicity heterogeneously increased, similar to the liver. Normal cortical thickness. No echogenic stones; no hydronephrosis. Spleen: Heterogeneous density. No focal lesions.. 10.2 cm long axis. Other: None. IMPRESSION: 1. Status post cholecystectomy. No residual fluid or ascites. No common duct dilation. Heterogeneous appearance of the spleen but no focal lesions. 2. Complex mass or cyst 2.8 cm in the right hepatic lobe and simple cyst also in the right hepatic lobe 1.7 cm. Is history of liver disease or metastatic disease? Consider follow-up liver mass protocol CT scan or MRI. 3. Minimal atrophy in the left kidney with cortical thinning and increased echogenicity. Limited visualization. This could be due to renovascular disease or prior infection. Right kidney is unremarkable. Electronically signed by: Efren Webb MD 10/09/2020 12:38 PM [employer]
== END ==
LOC: US 10:16
PROVIDERS: ATTEND Family Medicine
DX: K76.9 Liver disease, unspecified (principal); K76.89 Other specified diseases of liver; N26.1 Atrophy of kidney (terminal); N28.9 Disorder of kidney and ureter, unspecified; Z90.49 Acquired absence of other specified parts of digestive tract

== ENCOUNTER → 2020-10-10 | Outpatient (CLI) | payer MEDICARE, OTHER ==
--- NOTE | 2020-10-10 10:20 | CT ---
EXAM DESCRIPTION: Abdomen/Pelvis w/wo Contrast CLINICAL HISTORY: 70 years Female, OTHER SPECIFIED DISEASES OF LIVER COMPARISON: CT of the abdomen dated 24 September 2020 TECHNIQUE: Transaxial images were obtained without and with intravenous contrast medium without oral contrast media. Sagittal and coronal reconstruction was performed.This exam was performed according to our departmental dose-optimization program, which includes automated exposure control, adjustment of the mA and/or kV according to patient size and/or use of iterative reconstruction technique. FINDINGS: Minimal atelectasis is observed in the right lung base. The spleen is normal in appearance. The patient is postcholecystectomy. No biliary ductal dilatation is observed. Hepatic steatosis is observed. Exam reveals what appears to be a cyst in the medial segment of left lobe the liver measuring 1.64cm in diameter. Presumed postsurgical changes are observed in the region of the hepatic hilum. They remain unchanged from the prior exam dating back to 06 April 2017. No adrenal masses are detected. The pancreas is normal in appearance. Imaging of the kidneys reveals no evidence of hydronephrosis mass cyst or calcification. Pedicle screw fusion of the lumbar spine is observed. The patient is post hysterectomy. No bowel abnormality is detected. IMPRESSION: 1. Cholecystectomy. 2. Hepatic steatosis. 3. Cyst in the medial segment of the left lobe the liver. 4. Presumed postsurgical changes are observed in the region of the hepatic hilum unchanged from a prior CT obtained in 2017. 4. Hysterectomy Electronically signed by: Jose Espinoza MD 10/10/2020 10:18 AM TRANSCRIPTER
== END ==
LOC: CT 09:12
PROVIDERS: ATTEND Family Medicine
DX: K76.89 Other specified diseases of liver (principal); K76.0 Fatty (change of) liver, not elsewhere classified; Z90.49 Acquired absence of other specified parts of digestive tract; Z90.710 Acquired absence of both cervix and uterus